=== PATIENT | male | born 1935 | race Caucasian/White ===

== ENCOUNTER 2017-05-11 15:22 | Inpatient (IN) | payer MEDICAID ==
[~2017-05-11] VITALS: Ht 172.7 cm; Wt 60.3 kg
[~2017-05-11 15:22] MED LIST: ACET-2178 PO; ALBU6.7H INH; DOCU-150 PO; FLUT1DIS IH; FURO-152 PO; LORA10TA7 PO; MONT10TA24 PO; OMEP40CA34 PO; TERA2CAP4 PO
[2017-05-11] MEDS ORDERED: PIPERACILLIN/TAZ 3.375G PREMIX 50 ML IV ONE (16:15)
[2017-05-11] MEDS ORDERED: VANCOMYCIN 1 G PREMIX 200 ML IV ONE (16:15)
[2017-05-11] MEDS ORDERED: SODIUM CHLORIDE 0.9% 1000ML BAG (SEPSIS BOLUS) IV ONE (16:15)
[2017-05-11 16:26] LABS: BG CARBOXYHEMOGLOBIN 0.3 % (0.5-1.5); BG DEOXYHEMOGLOBIN 2.1 % (0.0-5.0); BG HCO3 ACT 34.6 mmol/L (22.0-26.0); BG METHEMOGLOBIN 0.5 % (0.0-1.5); BG OXYGEN SATURATION 97.9 % (92.0-98.5); BG OXYHEMOGLOBIN 97.1 % (94.0-97.0); BG PCO2 59.2 mmHg (35.0-45.0); BG PH 7.384 (7.350-7.450); BG PO2 125.8 mmHg (75.0-100.0); BG SAMPLE SITE RIGHT RADIAL; BG TOTAL HEMOGLOBIN 10.6 g/dL (12.0-18.0); BG VENT MODE NASAL CANNULA
[2017-05-11 16:42] LABS: BASOPHILS % 0.9 % (0.0-2.0); EOSINOPHILS % 2.9 % (0.0-5.0); HEMOGLOBIN. 9.4 g/dL (14.0-18.0); LYMPHOCYTES % 8.1 % (20.0-50.0); MEAN CORPUSCULAR HEMOGLOBIN 32.4 pg (28.0-32.0); MEAN CORPUSCULAR VOLUME 96.1 fL (80.0-94.0); MEAN PLATELET VOLUME 8.3 fl (7.4-10.4); MONOCYTES % 5.3 % (2.0-8.0); NEUTROPHILS % 82.8 % (40.0-76.0); PLATELET 195 x1000/uL (130-400); RED BLOOD CELL COUNT 2.91 mill/uL (4.7-6.1); RED CELL DISTRIBUTION WIDTH 16.2 % (11.6-14.6)
[2017-05-11 16:45] LABS: PARTIAL THROMBOPLASTIN TIME 26.8 sec (23.4-31.0); PROTHROMBIN TIME 10.8 sec (9.4-11.6)
[2017-05-11 16:49] LABS: AMMONIA 31 uMol/L (<32)
[2017-05-11 16:49] LABS: CLARITY URINE TURBID (CLEAR); COLOR URINE YELLOW (YELLOW); GLUCOSE URINE NEGATIVE (NEGATIVE); KETONES URINE NEGATIVE (NEGATIVE); LEUKOCYTE ESTERASE URINE 3+ (NEGATIVE); NITRITE URINE NEGATIVE (NEGATIVE); OCCULT BLOOD URINE 2+ (NEGATIVE); PH URINE >=9.0 (4.5-8.0); PROTEIN URINE 2+ (NEGATIVE); SPECIFIC GRAVITY URINE 1.015 (1.005-1.030); UROBILINOGEN URINE 0.2 E.U./dL (0.2-1.0)
[2017-05-11 16:55] LABS: CARBON DIOXIDE 34 mEq/L (21-32); CHLORIDE 100 mEq/L (98-107)
[2017-05-11 16:57] LABS: TROPONIN I 0.03 ng/mL (0.00-0.04)
[2017-05-11 17:06] LABS: *AMPHETAMINES SCREEN URINE NEGATIVE (NEGATIVE); *BARBITURATES SCREEN URINE NEGATIVE (NEGATIVE); *BENZODIAZEPINES SCREEN URINE NEGATIVE (NEGATIVE); *COCAINE SCREEN URINE NEGATIVE (NEGATIVE); CANNABINOID URINE SCREEN NEGATIVE (NEGATIVE); METHADONE URINE SCREEN NEGATIVE (NEGATIVE); OPIATES URINE SCREEN NEGATIVE (NEGATIVE); PHENCYCLIDINE URINE SCREEN NEGATIVE (NEGATIVE)
[2017-05-11] MEDS ORDERED: ASPIRIN 300MG SUPP PR ONE (17:30)
[2017-05-11] MEDS ORDERED: DEXT 5%/0.45% NACL 1000ML 1,000 ML IV SCH (19:29)
[2017-05-11] MEDS ORDERED: ONDANSETRON HCL 4MG/2ML VIAL IV PRN (19:30)
[2017-05-11] MEDS ORDERED: DIPHENHYDRAMINE 50MG/ML VIAL IV PRN (19:30)
[2017-05-11] MEDS ORDERED: GUAIFENESIN 200MG/10ML SUGAR FREE UDC GT PRN (19:30)
[2017-05-11] MEDS ORDERED: ENOXAPARIN 40MG/0.4ML SYR SUBCUT SCH (19:30)
[2017-05-11] MEDS ORDERED: IPRATROPIUM/ALBUTEROL 0.5-3(2.5)MG/3ML NEB INH PRN (19:30)
[2017-05-11] MEDS ORDERED: ACETAMINOPHEN 650MG/20.3ML UDC GT PRN (19:30)
[2017-05-11] MEDS ORDERED: CLONIDINE 0.1MG TABLET GT PRN (19:30)
[2017-05-11 22:00] VITALS: BP 108/68
[2017-05-11] MEDS: DEXT 5%/0.45% NACL 1000ML 1,000 ML IV SCH (22:55)
[2017-05-11] MEDS ORDERED: CEFTRIAXONE 1 G PREMIX 50 ML IV SCH (23:00)
[2017-05-11] MEDS: IPRATROPIUM/ALBUTEROL 0.5-3(2.5)MG/3ML NEB HHN SCH (23:23)
[2017-05-12] VITALS: BP 111/58
[2017-05-12] MEDS ORDERED: VITAMINC GT (00:12)
[2017-05-12] MEDS ORDERED: [UNRECOGNIZED DRUG - OTHER] GT (00:12)
[2017-05-12] MEDS ORDERED: ZINC SULFATE GT (00:12)
[2017-05-12] MEDS ORDERED: MULTIVI GT (00:16)
[2017-05-12] MEDS ORDERED: [UNRECOGNIZED DRUG - OTHER] (00:16)
[2017-05-12] MEDS ORDERED: MILK (00:16)
[2017-05-12] MEDS ORDERED: MAGNESIUM HYDROXIDE GT (00:18)
[2017-05-12] MEDS ORDERED: FLEET ENEMA * (00:20)
[2017-05-12] MEDS ORDERED: FAMO20TA8 PO (00:21)
[2017-05-12] MEDS ORDERED: DULCOLAX (00:22)
[2017-05-12] MEDS ORDERED: DUONEB (00:24)
[2017-05-12] MEDS ORDERED: CRANBERRY CAPSULE GT (00:26)
[2017-05-12 04:00] VITALS: BP 102/54
[2017-05-12] MEDS: IPRATROPIUM/ALBUTEROL 0.5-3(2.5)MG/3ML NEB HHN SCH ×5 (04:16→20:26)
[2017-05-12] MEDS: BUDESONIDE 0.5MG/2ML NEB HHN SCH ×2 (08:10→20:26)
[2017-05-12 08:20] VITALS: BP 111/54
[2017-05-12] MEDS: ENOXAPARIN 30MG/0.3ML SYR SUBCUT SCH (08:43)
[2017-05-12] MEDS ORDERED: FAMO20TA8 GT (10:39)
[2017-05-12] MEDS ORDERED: CLON0.1T GT (10:39)
[2017-05-12] MEDS ORDERED: FLEET ENEMA RC (10:39)
[2017-05-12] MEDS ORDERED: Robitussin DM GT (10:39)
[2017-05-12] MEDS ORDERED: MILK OF MAGNESIA GT (10:39)
[2017-05-12] MEDS ORDERED: ASCO500C6 GT (10:39)
[2017-05-12] MEDS ORDERED: MULT-1146 GT (10:39)
[2017-05-12] MEDS ORDERED: DOCU-138 GT (10:39)
[2017-05-12] MEDS ORDERED: ACET-2178 GT (10:39)
[2017-05-12] MEDS ORDERED: DUONEB INH (10:39)
[2017-05-12] MEDS: DEXT 5%/0.45% NACL 1000ML 1,000 ML IV SCH (11:36)
[2017-05-12 12:55] VITALS: BP 106/49
[2017-05-12] MEDS ORDERED: IPRATROPIUM/ALBUTEROL 0.5-3(2.5)MG/3ML NEB HHN PRN (16:45)
[2017-05-12 17:03] VITALS: BP 115/55
[2017-05-12] MEDS: MEROPENEM 500 MG in SODIUM CHLORIDE 0.9% 50 ML IV SCH (17:42)
[2017-05-12 20:00] VITALS: BP 97/49
[2017-05-12] MEDS: ACETYLCYSTEINE 100MG/ML 10% VIAL 4ML INH SCH (20:26)
[2017-05-12] MEDS ORDERED: CEFTRIAXONE 1 G PREMIX 50 ML IV SCH (21:00)
[2017-05-13] VITALS: BP 90/54
[2017-05-13] MEDS: MEROPENEM 500 MG in SODIUM CHLORIDE 0.9% 50 ML IV SCH ×4 (00:07→21:07)
[2017-05-13] MEDS: DEXT 5%/0.45% NACL 1000ML 1,000 ML IV SCH (00:07)
[2017-05-13] MEDS: IPRATROPIUM/ALBUTEROL 0.5-3(2.5)MG/3ML NEB HHN SCH ×4 (01:11→20:35)
[2017-05-13 04:00] VITALS: BP 100/55
[2017-05-13 07:24] LABS: BASOPHILS % 0.9 % (0.0-2.0); EOSINOPHILS % 4.1 % (0.0-5.0); HEMATOCRIT. 24.9 % (42.0-52.0); HEMOGLOBIN. 8.3 g/dL (14.0-18.0); LYMPHOCYTES % 9.8 % (20.0-50.0); MEAN CORPUSCULAR HEMOGLOBIN 32.8 pg (28.0-32.0); MEAN CORPUSCULAR VOLUME 98.3 fL (80.0-94.0); MEAN PLATELET VOLUME 8.3 fl (7.4-10.4); MONOCYTES % 5.5 % (2.0-8.0); NEUTROPHILS % 79.7 % (40.0-76.0); PLATELET 192 x1000/uL (130-400); RED BLOOD CELL COUNT 2.54 mill/uL (4.7-6.1); RED CELL DISTRIBUTION WIDTH 16.5 % (11.6-14.6)
[2017-05-13 07:56] VITALS: BP 116/41
[2017-05-13] MEDS: BUDESONIDE 0.5MG/2ML NEB HHN SCH ×2 (08:18→20:35)
[2017-05-13] MEDS: ACETYLCYSTEINE 100MG/ML 10% VIAL 4ML INH SCH ×2 (08:18→20:36)
[2017-05-13] MEDS: ENOXAPARIN 30MG/0.3ML SYR SUBCUT SCH (08:31)
[2017-05-13 12:00] VITALS: BP 134/60
[2017-05-13 16:00] VITALS: BP 121/57
[2017-05-13 20:00] VITALS: BP 121/46
[2017-05-14] VITALS: BP 122/49
[2017-05-14] MEDS: DEXT 5%/0.45% NACL 1000ML 1,000 ML IV SCH ×2 (00:06→21:46)
[2017-05-14] MEDS: IPRATROPIUM/ALBUTEROL 0.5-3(2.5)MG/3ML NEB HHN SCH ×4 (02:15→20:13)
[2017-05-14 04:00] VITALS: BP 133/64
[2017-05-14] MEDS: MEROPENEM 500 MG in SODIUM CHLORIDE 0.9% 50 ML IV SCH ×3 (06:11→21:43)
[2017-05-14 08:00] VITALS: BP 143/65
[2017-05-14] MEDS: ENOXAPARIN 30MG/0.3ML SYR SUBCUT SCH (08:23)
[2017-05-14] MEDS: BUDESONIDE 0.5MG/2ML NEB HHN SCH ×2 (09:30→20:13)
[2017-05-14 12:00] VITALS: BP 137/58
[2017-05-14 16:00] VITALS: BP 144/59
[2017-05-14 20:00] VITALS: BP 118/58
[2017-05-14] MEDS: ACETYLCYSTEINE 100MG/ML 10% VIAL 4ML INH SCH (20:13)
[2017-05-15] VITALS: BP 137/58
[2017-05-15] MEDS: IPRATROPIUM/ALBUTEROL 0.5-3(2.5)MG/3ML NEB HHN SCH ×2 (01:26→10:25)
[2017-05-15 04:00] VITALS: BP 144/69
[2017-05-15] MEDS: MEROPENEM 500 MG in SODIUM CHLORIDE 0.9% 50 ML IV SCH ×2 (06:20→13:45)
[2017-05-15 07:39] VITALS: BP 135/61
[2017-05-15] MEDS: ENOXAPARIN 30MG/0.3ML SYR SUBCUT SCH (08:23)
[2017-05-15] MEDS: ACETYLCYSTEINE 100MG/ML 10% VIAL 4ML INH SCH (10:25)
[2017-05-15 12:00] VITALS: BP 127/64
[2017-05-15 16:00] VITALS: BP 147/66
== END 2017-05-15 17:30 | DRG 720 ==
LOC: ER 15:46 → 6WST 17:56 → EDBEDREQ 17:59 → ENRESERV 20:23
PROVIDERS: ADMIT Internal Medicine; ATTEND Internal Medicine
DX: A41.9 Sepsis, unspecified organism (principal); J96.00 Acute respiratory failure, unspecified whether with hypoxia or hypercapnia; E43 Unspecified severe protein-calorie malnutrition; I13.0 Hypertensive heart and chronic kidney disease with heart failure and stage 1 through stage 4 chronic kidney disease, or unspecified chronic kidney disease; G93.41 Metabolic encephalopathy; J18.9 Pneumonia, unspecified organism; N17.9 Acute kidney failure, unspecified; I42.9 Cardiomyopathy, unspecified; I50.42 Chronic combined systolic (congestive) and diastolic (congestive) heart failure; J44.1 Chronic obstructive pulmonary disease with (acute) exacerbation; N39.0 Urinary tract infection, site not specified; E86.0 Dehydration; D64.9 Anemia, unspecified; M48.56XA Collapsed vertebra, not elsewhere classified, lumbar region, initial encounter for fracture; I25.10 Atherosclerotic heart disease of native coronary artery without angina pectoris; Z16.24 Resistance to multiple antibiotics; N18.9 Chronic kidney disease, unspecified; K21.0 Gastro-esophageal reflux disease with esophagitis; K59.00 Constipation, unspecified; K76.9 Liver disease, unspecified; N32.0 Bladder-neck obstruction; N40.0 Benign prostatic hyperplasia without lower urinary tract symptoms; Z68.20 Body mass index [BMI] 20.0-20.9, adult; Z79.899 Other long term (current) drug therapy; I25.2 Old myocardial infarction; Z86.11 Personal history of tuberculosis; Z86.14 Personal history of Methicillin resistant Staphylococcus aureus infection; Z93.1 Gastrostomy status
CPT/HCPCS: 36415; 36600; 70450; 71010; 80048; 80053; 80305; 81001; 82140; 82375; 82805; 83605; 83735; 84484; 85025; 85610; 85730; 87040; 87070; 87077; 87086; 87186; 92610; 93005; 94640; 94664; 94667; 96361; 96365; 96366; 96367; 97110; 97162; 97164; 97166; 97530; 99285; A6261; J0696; J1650; J2185; J2543; J3370; J3490; J7030; J7040; J7608; J7620; J7626